=== PATIENT | male | born 1940 | race Caucasian/White ===

== ENCOUNTER → 2017-01-28 | Outpatient (CLI) | payer MEDICARE ==
[~2017-01-28] MED LIST: AMLO10TA2 PO; AMLO10TA4 PO; ATOR20TA PO; Allopurinol; BENA20TA16 PO; COLC0.6T34 PO; FERR-26 PO; META800T21 PO; METO5TAB4 PO
[2017-01-28 09:10] VITALS: BP 185/74
== END | disposition home or self-care (01) ==
LOC: LAB 09:51
PROVIDERS: ATTEND Nurse Practitioner Family
DX: E78.5 Hyperlipidemia, unspecified (principal)
CPT/HCPCS: 36415; 80061

== ENCOUNTER → 2018-02-03 | Outpatient (CLI) | payer MEDICARE ==
[2018-02-03 09:07] LABS: ADD MAN DIFF? NO
[2018-02-03 09:12] LABS: BASO # 0.1 x10^3/uL (0.0-0.2); BASO % 1 % (0-3); EOS # 0.3 x10^3/uL (0.0-0.7); EOS % 4 % (0-3); HEMATOCRIT 34.5 % (39.0-53.0); HEMOGLOBIN 11.9 g/dL (13.0-17.5); LYMPH # 1.3 x10^3/uL (1.0-4.8); LYMPH % 19 % (24-48); MEAN CORPUSCULAR HEMOGLOBIN 30 pg (25-35); MEAN CORPUSCULAR HGB CONC 35 g/dL (31-37); MEAN CORPUSCULAR VOLUME 87 fL (79-100); MONO # 0.6 x10^3/uL (0.0-1.1); MONO % 9 % (0-9); NEUT # 4.6 x10^3uL (1.8-7.7); NEUT % 67 % (31-73); PLATELET COUNT 176 x10^3/uL (140-400); RED BLOOD COUNT 3.94 x10^6/uL (4.30-5.70); WHITE BLOOD COUNT 6.9 x10^3/uL (4.0-11.0)
[2018-02-03 09:30] LABS: % SAT IRON 22 % (15-34); IRON,SERUM 79 ug/dL (65-175)
[2018-02-03 09:42] LABS: FERRITIN 48 ng/mL (26-388)
[2018-02-04 12:19] LABS: CALCIUM PTH 9.8 mg/dL (8.6-10.2); PHOSPHORUS PTH 3.7 mg/dL (2.5-4.5); PTH INTACT 240 pg/mL (15-65); eGFR AFRICAN-AMER 19 (>59); eGFR NON AFRICAN-AMER 17 (>59)
== END | disposition home or self-care (01) ==
LOC: LAB 08:49
DX: I12.9 Hypertensive chronic kidney disease with stage 1 through stage 4 chronic kidney disease, or unspecified chronic kidney disease (principal); N18.4 Chronic kidney disease, stage 4 (severe); D63.1 Anemia in chronic kidney disease; N25.81 Secondary hyperparathyroidism of renal origin; Z68.24 Body mass index [BMI] 24.0-24.9, adult
CPT/HCPCS: 36415; 82728; 83540; 83550; 83970; 85025

== ENCOUNTER → 2018-06-22 | Outpatient (CLI) | payer MEDICARE ==
[2018-06-09 10:03] VITALS: BP 179/75
[~2018-06-22] MED LIST changes: -FERR-26 PO; +FERR325T14 PO; +META-21 PO; -META800T21 PO; +OMEG1CAP29 PO; +VIT1TABL32 PO
[2018-06-22 11:02] LABS: BASO # 0.1 x10^3/uL (0.0-0.2); BASO % 1 % (0-3); EOS # 0.2 x10^3/uL (0.0-0.7); EOS % 4 % (0-3); HEMATOCRIT 31.1 % (39.0-53.0); HEMOGLOBIN 10.7 g/dL (13.0-17.5); LYMPH % 17 % (24-48); MEAN CORPUSCULAR HEMOGLOBIN 31 pg (25-35); MEAN CORPUSCULAR HGB CONC 35 g/dL (31-37); MEAN CORPUSCULAR VOLUME 89 fL (79-100); MONO # 0.5 x10^3/uL (0.0-1.1); MONO % 8 % (0-9); NEUT # 4.2 x10^3uL (1.8-7.7); NEUT % 70 % (31-73); PLATELET COUNT 167 x10^3/uL (140-400); RED BLOOD COUNT 3.49 x10^6/uL (4.30-5.70); RED CELL DISTRIBUTION WIDTH 15.2 % (11.5-14.5)
[2018-06-22 11:22] LABS: ALBUMIN 3.6 g/dL (3.4-5.0); CALCIUM 9.1 mg/dL (8.5-10.1); CREATININE 3.6 mg/dL (0.7-1.3); GFR 16.6; PHOSPHORUS 3.5 mg/dL (2.6-4.7); POTASSIUM 4.1 mmol/L (3.5-5.1)
[2018-06-23 08:25] LABS: CALCIUM PTH 9.8 mg/dL (8.6-10.2); CREATININE PTH 3.37 mg/dL (0.76-1.27); PHOSPHORUS PTH 3.4 mg/dL (2.5-4.5); PTH INTACT 332 pg/mL (15-65)
== END | disposition home or self-care (01) ==
LOC: LAB 10:25
PROVIDERS: ATTEND Internal Medicine Nephrology
DX: I12.9 Hypertensive chronic kidney disease with stage 1 through stage 4 chronic kidney disease, or unspecified chronic kidney disease (principal); N18.4 Chronic kidney disease, stage 4 (severe); N25.81 Secondary hyperparathyroidism of renal origin; D63.1 Anemia in chronic kidney disease; E78.5 Hyperlipidemia, unspecified
CPT/HCPCS: 36415; 80069; 82728; 83540; 83550; 83970; 85025

== ENCOUNTER → 2018-11-09 | Outpatient (CLI) | payer MEDICARE ==
[2018-09-29 10:06] VITALS: BP 199/83
[~2018-11-09] MED LIST changes: -AMLO10TA2 PO; +AMLO10TA6 PO
[2018-11-09 11:37] LABS: BASO # 0.1 x10^3/uL (0.0-0.2); BASO % 1 % (0-3); EOS # 0.3 x10^3/uL (0.0-0.7); EOS % 4 % (0-3); HEMATOCRIT 33.4 % (39.0-53.0); HEMOGLOBIN 11.6 g/dL (13.0-17.5); LYMPH # 1.2 x10^3/uL (1.0-4.8); LYMPH % 16 % (24-48); MEAN CORPUSCULAR HEMOGLOBIN 30 pg (25-35); MEAN CORPUSCULAR HGB CONC 35 g/dL (31-37); MEAN CORPUSCULAR VOLUME 87 fL (79-100); MONO # 0.5 x10^3/uL (0.0-1.1); MONO % 7 % (0-9); NEUT # 5.4 x10^3uL (1.8-7.7); NEUT % 71 % (31-73); PLATELET COUNT 221 x10^3/uL (140-400); RED BLOOD COUNT 3.86 x10^6/uL (4.30-5.70); RED CELL DISTRIBUTION WIDTH 14.1 % (11.5-14.5); WHITE BLOOD COUNT 7.5 x10^3/uL (4.0-11.0)
[2018-11-09 12:03] LABS: ALBUMIN 3.6 g/dL (3.4-5.0); CALCIUM 10.2 mg/dL (8.5-10.1); CREATININE 3.8 mg/dL (0.7-1.3); GFR 15.5; PHOSPHORUS 3.8 mg/dL (2.6-4.7); POTASSIUM 4.5 mmol/L (3.5-5.1)
[2018-11-09 17:11] LABS: CALCIUM PTH 9.9 mg/dL (8.6-10.2); CREATININE PTH 3.45 mg/dL (0.76-1.27); PHOSPHORUS PTH 3.9 mg/dL (2.5-4.5); PTH INTACT 215 pg/mL (15-65)
== END | disposition home or self-care (01) ==
LOC: LAB 11:12
PROVIDERS: ATTEND Internal Medicine Nephrology
DX: I12.9 Hypertensive chronic kidney disease with stage 1 through stage 4 chronic kidney disease, or unspecified chronic kidney disease (principal); N18.4 Chronic kidney disease, stage 4 (severe); N25.81 Secondary hyperparathyroidism of renal origin; D63.1 Anemia in chronic kidney disease; E87.2 Acidosis
CPT/HCPCS: 36415; 80069; 82728; 83540; 83550; 83970; 85025

== ENCOUNTER → 2019-01-11 | Outpatient (CLI) | payer MEDICARE ==
[2018-12-30 09:58] VITALS: BP 166/79
[~2019-01-11] MED LIST changes: -AMLO10TA6 PO; +AMLO10TA8 PO; +METO50TA6 PO
--- NOTE | 2019-01-11 09:04 | RAD ---
EXAM: Matias scale and color Doppler renal artery sonogram. HISTORY: Hypertension. TECHNIQUE: Matias scale and color Doppler sonographic imaging of the kidneys and renal arteries with spectral waveform analysis was performed. COMPARISON: None. FINDINGS: The right kidney measures 10.5 cm tdco-zj-otby. The left kidney measures 9.7 cm stvf-ry-jsyp. No solid or cystic renal lesion is seen. There is no hydronephrosis. The urinary bladder is unremarkable. The peak systolic velocity within the right renal artery is 141 cm/s. The peak systolic velocity within the left renal artery is 127 cm/s. There are normal renal artery to aorta velocity ratios. IMPRESSION: 1. No Doppler evidence of greater than 60% stenosis of the renal arteries. 2. Unremarkable grayscale sonographic evaluation of the kidneys. Electronically signed by: Minnie Styles MD (01/11/2019 9:01 AM) [facility]
== END | disposition home or self-care (01) ==
LOC: US 14:38
PROVIDERS: ATTEND Family Medicine
DX: I10 Essential (primary) hypertension (principal)
CPT/HCPCS: 76770

== ENCOUNTER → 2019-04-09 | Outpatient (CLI) | payer MEDICARE ==
[2019-03-23 09:09] VITALS: BP 162/73
[2019-04-09 14:41] LABS: BASO # 0.1 x10^3/uL (0.0-0.2); BASO % 1 % (0-3); EOS # 0.3 x10^3/uL (0.0-0.7); EOS % 5 % (0-3); HEMATOCRIT 30.1 % (39.0-53.0); HEMOGLOBIN 10.6 g/dL (13.0-17.5); LYMPH # 1.1 x10^3/uL (1.0-4.8); LYMPH % 17 % (24-48); MEAN CORPUSCULAR HEMOGLOBIN 31 pg (25-35); MEAN CORPUSCULAR HGB CONC 35 g/dL (31-37); MEAN CORPUSCULAR VOLUME 88 fL (79-100); MONO # 0.6 x10^3/uL (0.0-1.1); MONO % 9 % (0-9); NEUT # 4.3 x10^3uL (1.8-7.7); NEUT % 68 % (31-73); PLATELET COUNT 145 x10^3/uL (140-400); RED BLOOD COUNT 3.43 x10^6/uL (4.30-5.70); RED CELL DISTRIBUTION WIDTH 14.3 % (11.5-14.5); WHITE BLOOD COUNT 6.4 x10^3/uL (4.0-11.0)
[2019-04-09 15:19] LABS: ALBUMIN 3.7 g/dL (3.4-5.0); CALCIUM 9.6 mg/dL (8.5-10.1); CREATININE 4.5 mg/dL (0.7-1.3); GFR 12.8
[2019-04-10 17:08] LABS: CALCIUM PTH 9.6 mg/dL (8.6-10.2); CREATININE PTH 4.21 mg/dL (0.76-1.27); PHOSPHORUS PTH 4.7 mg/dL (2.5-4.5); PTH INTACT 525 pg/mL (15-65)
== END | disposition home or self-care (01) ==
LOC: LAB 13:54
PROVIDERS: ATTEND Nurse Practitioner Family
DX: I12.9 Hypertensive chronic kidney disease with stage 1 through stage 4 chronic kidney disease, or unspecified chronic kidney disease (principal); N18.4 Chronic kidney disease, stage 4 (severe); D63.1 Anemia in chronic kidney disease; D50.9 Iron deficiency anemia, unspecified; R80.9 Proteinuria, unspecified
CPT/HCPCS: 36415; 80069; 82728; 83540; 83550; 83735; 83970; 85025

== ENCOUNTER → 2019-04-15 | Outpatient (CLI) | payer MEDICARE ==
[2019-03-23 09:09] VITALS: BP 162/73
--- NOTE | 2019-04-15 09:46 | CARD ---
MR#: [id number] Date of Study: 04/15/2019 Ordering Physician: ROCAEL HONG, Referring Physician: ROCAEL HONG, Tech: Kay Carballo [facility] APPROVED REPORT EXAM: Two-dimensional and M-mode echocardiogram with Doppler and color Doppler. Other Information Quality : AverageHR: 55bpm Rhythm : Bradycardia INDICATION Hypertension/HCVD 2D DIMENSIONS RVDd2.9 (2.9-3.5cm)Left Atrium(2D)2.7 (1.6-4.0cm) IVSd1.4 (0.7-1.1cm)Aortic Root(2D)3.0 (2.0-3.7cm) LVDd4.8 (3.9-5.9cm)LVOT Diameter2.0 (1.8-2.4cm) PWd1.1 (0.7-1.1cm)LVDs2.9 (2.5-4.0cm) FS (%) 38.8 %SV74.7 ml LVEF(%)65.0 (>50%) M-Mode DIMENSIONS Left Atrium(MM)2.97 (2.5-4.0cm)Aortic Root3.49 (2.2-3.7cm) Aortic Valve AoV Peak Berry.158.7cm/sAoV VTI37.1cm AO Peak GR.10.1mmHgLVOT Peak Berry.104.0cm/s AO Mean GR.5mmHgAVA (VMAX)1.99cm2 ANATOLIY (VTI)2.00cm2 Mitral Valve MV E Uwxjajng65.2cm/sMV DECEL [id number] MV A Bopewcce764.9cm/sE/A Ratio0.7 MV A Sgkokrhp640ac Pulmonary Valve PV Peak Dmlbtrkm71.7cm/s LEFT VENTRICLE The left ventricle is normal size. There is mild concentric left ventricular hypertrophy. The left ve ntricular systolic function is normal and the ejection fraction is within normal range. The Ejection Fraction is 60-65%. There is normal LV segmental wall motion. Transmitral Doppler flow pattern is Gra de I-abnormal relaxation pattern. RIGHT VENTRICLE The right ventricle is normal size. There is normal right ventricular wall thickness. The right ventr icular systolic function is normal. ATRIA The left atrium size is normal. The right atrium size is normal. The interatrial septum is intact wit h no evidence for an atrial septal defect or patent foramen ovale as noted on 2-D or Doppler imaging. AORTIC VALVE The aortic valve is thickened but opens well. The aortic valve is trileaflet. Doppler and Color Flow revealed trace aortic regurgitation. There is no significant aortic valvular stenosis. There is no ao rtic valvular vegetation. MITRAL VALVE The mitral valve is normal in structure and function. There is no evidence of mitral valve prolapse. There is no mitral valve stenosis. Doppler and Color-flow revealed trace mitral regurgitation. TRICUSPID VALVE The tricuspid valve is normal in structure and function. Doppler and Color Flow revealed no tricuspid valve regurgitation noted. There is no tricuspid valve prolapse or vegetation. There is no tricuspid valve stenosis. PULMONIC VALVE Doppler and Color Flow revealed mild pulmonic valvular regurgitation. There is no pulmonic valvular s tenosis. GREAT VESSELS The aortic root is normal in size. The ascending aorta is normal in size. The IVC is normal in size a nd collapses >50% with inspiration. PERICARDIAL EFFUSION There is no evidence of significant pericardial effusion. Critical Notification Critical Value: No <Conclusion> The left ventricular systolic function is normal and the ejection fraction is within normal range. Th e Ejection Fraction is 60-65%. There is normal LV segmental wall motion. Signed by : Rocael Hong, Electronically Approved : 04/15/2019 09:46:01
== END | disposition home or self-care (01) ==
LOC: ECHO 07:28
PROVIDERS: ATTEND Internal Medicine Cardiovascular Disease
DX: I37.1 Nonrheumatic pulmonary valve insufficiency (principal); I11.9 Hypertensive heart disease without heart failure; R00.8 Other abnormalities of heart beat
CPT/HCPCS: 93306

== ENCOUNTER → 2019-05-10 | Outpatient (CLI) | payer MEDICARE ==
[2019-04-15 08:25] VITALS: BP 179/73
[2019-05-10 15:05] LABS: ALBUMIN 3.7 g/dL (3.4-5.0); CALCIUM 9.6 mg/dL (8.5-10.1); CREATININE 4.5 mg/dL (0.7-1.3); GFR 12.8; PHOSPHORUS 4.4 mg/dL (2.6-4.7); POTASSIUM 4.2 mmol/L (3.5-5.1)
== END | disposition home or self-care (01) ==
LOC: LAB 12:47
PROVIDERS: ATTEND Nurse Practitioner Adult Health
DX: I12.0 Hypertensive chronic kidney disease with stage 5 chronic kidney disease or end stage renal disease (principal); N18.5 Chronic kidney disease, stage 5; D63.1 Anemia in chronic kidney disease; D50.9 Iron deficiency anemia, unspecified; R80.9 Proteinuria, unspecified; Z68.22 Body mass index [BMI] 22.0-22.9, adult
CPT/HCPCS: 36415; 80069

== ENCOUNTER → 2019-11-11 | Outpatient (CLI) | payer MEDICARE ==
[2019-11-02 09:59] VITALS: BP 178/79
[2019-11-11 10:04] LABS: BASO # 0.1 x10^3/uL (0.0-0.2); BASO % 1 % (0-3); EOS # 0.2 x10^3/uL (0.0-0.7); EOS % 3 % (0-3); HEMATOCRIT 37.4 % (39.0-53.0); HEMOGLOBIN 12.8 g/dL (13.0-17.5); LYMPH # 1.2 x10^3/uL (1.0-4.8); LYMPH % 16 % (24-48); MEAN CORPUSCULAR HEMOGLOBIN 31 pg (25-35); MEAN CORPUSCULAR HGB CONC 34 g/dL (31-37); MEAN CORPUSCULAR VOLUME 89 fL (79-100); MONO # 0.6 x10^3/uL (0.0-1.1); MONO % 8 % (0-9); NEUT # 5.4 x10^3/uL (1.8-7.7); NEUT % 72 % (31-73); PLATELET COUNT 168 x10^3/uL (140-400); RED BLOOD COUNT 4.19 x10^6/uL (4.30-5.70); RED CELL DISTRIBUTION WIDTH 13.9 % (11.5-14.5); WHITE BLOOD COUNT 7.5 x10^3/uL (4.0-11.0)
[2019-11-11 10:49] LABS: ALBUMIN 4.1 g/dL (3.4-5.0); CALCIUM 10.5 mg/dL (8.5-10.1); CREATININE 4.3 mg/dL (0.7-1.3); GFR 13.4; PHOSPHORUS 5.4 mg/dL (2.6-4.7); POTASSIUM 4.7 mmol/L (3.5-5.1)
[2019-11-12 00:07] LABS: CALCIUM PTH 10.9 mg/dL (8.6-10.2); PHOSPHORUS PTH 5.3 mg/dL (2.5-4.5); PTH INTACT 362 pg/mL (15-65)
== END | disposition home or self-care (01) ==
LOC: LAB 09:25
PROVIDERS: ATTEND Internal Medicine Nephrology
DX: I12.0 Hypertensive chronic kidney disease with stage 5 chronic kidney disease or end stage renal disease (principal); N18.5 Chronic kidney disease, stage 5; R80.9 Proteinuria, unspecified; D63.1 Anemia in chronic kidney disease; D50.9 Iron deficiency anemia, unspecified
CPT/HCPCS: 36415; 80069; 82728; 83540; 83550; 83970; 85025

== ENCOUNTER → 2020-04-06 | Outpatient (CLI) | payer MEDICARE ==
[2020-03-21 10:03] VITALS: BP 133/61
[2020-04-06 09:05] LABS: BASO # 0.1 x10^3/uL (0.0-0.2); BASO % 1 % (0-3); EOS # 0.2 x10^3/uL (0.0-0.7); EOS % 5 % (0-3); HEMATOCRIT 29.7 % (39.0-53.0); HEMOGLOBIN 10.1 g/dL (13.0-17.5); LYMPH # 0.7 x10^3/uL (1.0-4.8); LYMPH % 13 % (24-48); MEAN CORPUSCULAR HEMOGLOBIN 30 pg (25-35); MEAN CORPUSCULAR HGB CONC 34 g/dL (31-37); MEAN CORPUSCULAR VOLUME 88 fL (79-100); MONO # 0.5 x10^3/uL (0.0-1.1); MONO % 9 % (0-9); NEUT % 73 % (31-73); PLATELET COUNT 149 x10^3/uL (140-400); RED BLOOD COUNT 3.37 x10^6/uL (4.30-5.70); RED CELL DISTRIBUTION WIDTH 15.3 % (11.5-14.5); WHITE BLOOD COUNT 5.5 x10^3/uL (4.0-11.0)
[2020-04-06 09:41] LABS: ALBUMIN 3.5 g/dL (3.4-5.0); CALCIUM 9.9 mg/dL (8.5-10.1); CREATININE 4.4 mg/dL (0.7-1.3); GFR 13.1; PHOSPHORUS 5.5 mg/dL (2.6-4.7); POTASSIUM 4.9 mmol/L (3.5-5.1)
[2020-04-07 01:08] LABS: CALCIUM PTH 10.7 mg/dL (8.6-10.2); CREATININE PTH 4.24 mg/dL (0.76-1.27); PHOSPHORUS PTH 5.6 mg/dL (2.8-4.1); PTH INTACT 544 pg/mL (15-65)
== END | disposition home or self-care (01) ==
LOC: LAB 08:40
PROVIDERS: ATTEND Nurse Practitioner Adult Health
DX: I12.0 Hypertensive chronic kidney disease with stage 5 chronic kidney disease or end stage renal disease (principal); N18.5 Chronic kidney disease, stage 5; R80.9 Proteinuria, unspecified; D63.1 Anemia in chronic kidney disease; D50.9 Iron deficiency anemia, unspecified; N25.81 Secondary hyperparathyroidism of renal origin
CPT/HCPCS: 36415; 80069; 82728; 83540; 83550; 83970; 85025

== ENCOUNTER → 2020-05-16 | Outpatient (CLI) | payer MEDICARE ==
[~2020-05-16] VITALS: Ht 162.6 cm; Wt 60.8 kg
[~2020-05-16] MED LIST changes: +EPOETIN ALFA 20,000 UNIT/ML VIAL. SQ ONE
[2020-05-16 10:11] VITALS: BP 117/61
[2020-05-16 10:11] LABS: HEMATOCRIT 29.9 % (39.0-53.0); HEMOGLOBIN 10.4 g/dL (13.0-17.5)
== END | disposition home or self-care (01) ==
LOC: OPS 09:45
PROVIDERS: ATTEND Internal Medicine Nephrology
DX: I12.9 Hypertensive chronic kidney disease with stage 1 through stage 4 chronic kidney disease, or unspecified chronic kidney disease (principal); N18.4 Chronic kidney disease, stage 4 (severe); D63.1 Anemia in chronic kidney disease; M19.90 Unspecified osteoarthritis, unspecified site
CPT/HCPCS: 36415; 85014; 85018; 96372; J0885

== ENCOUNTER → 2020-06-13 | Outpatient (CLI) | payer MEDICARE ==
[~2020-06-13] MED LIST changes: -EPOETIN ALFA 20,000 UNIT/ML VIAL. SQ ONE
[2020-06-13 10:17] VITALS: BP 124/56
[2020-06-13 10:37] LABS: HEMATOCRIT 33.1 % (39.0-53.0); HEMOGLOBIN 11.4 g/dL (13.0-17.5)
== END ==
LOC: OPS 09:54
PROVIDERS: ATTEND Internal Medicine Nephrology
DX: D63.1 Anemia in chronic kidney disease (principal)
CPT/HCPCS: 36415; 82728; 83540; 83550; 85014; 85018

== ENCOUNTER → 2020-07-11 | Outpatient (CLI) | payer MEDICARE ==
[~2020-07-11] VITALS: Ht 160 cm; Wt 59.0 kg
[2020-07-11 10:11] VITALS: BP 150/75
[2020-07-11 10:29] LABS: HEMATOCRIT 32.6 % (39.0-53.0); HEMOGLOBIN 11.2 g/dL (13.0-17.5)
== END | disposition home or self-care (01) ==
LOC: OPS 09:50
PROVIDERS: ATTEND Internal Medicine Nephrology
DX: N18.9 Chronic kidney disease, unspecified (principal); D63.1 Anemia in chronic kidney disease
CPT/HCPCS: 36415; 85014; 85018

== ENCOUNTER → 2020-07-11 | Outpatient (CLI) | payer MEDICARE ==
[2020-07-11 10:11] VITALS: BP 150/75
[2020-07-11 12:45] LABS: BASO # 0.1 x10^3/uL (0.0-0.2); BASO % 1 % (0-3); EOS # 0.2 x10^3/uL (0.0-0.7); EOS % 4 % (0-3); HEMATOCRIT 32.7 % (39.0-53.0); HEMOGLOBIN 11.1 g/dL (13.0-17.5); LYMPH % 19 % (24-48); MEAN CORPUSCULAR HEMOGLOBIN 30 pg (25-35); MEAN CORPUSCULAR HGB CONC 34 g/dL (31-37); MEAN CORPUSCULAR VOLUME 87 fL (79-100); MONO # 0.5 x10^3/uL (0.0-1.1); MONO % 10 % (0-9); NEUT # 3.7 x10^3/uL (1.8-7.7); NEUT % 67 % (31-73); PLATELET COUNT 144 x10^3/uL (140-400); RED BLOOD COUNT 3.76 x10^6/uL (4.30-5.70); RED CELL DISTRIBUTION WIDTH 15.7 % (11.5-14.5); WHITE BLOOD COUNT 5.6 x10^3/uL (4.0-11.0)
[2020-07-11 13:30] LABS: ALBUMIN 3.5 g/dL (3.4-5.0); CALCIUM 10.6 mg/dL (8.5-10.1); CREATININE 4.4 mg/dL (0.7-1.3); GFR 13.1; PHOSPHORUS 5.8 mg/dL (2.6-4.7); POTASSIUM 4.7 mmol/L (3.5-5.1)
[2020-07-12 01:08] LABS: CALCIUM PTH 10.7 mg/dL (8.6-10.2); CREATININE PTH 4.33 mg/dL (0.76-1.27); PHOSPHORUS PTH 5.7 mg/dL (2.8-4.1); PTH INTACT 516 pg/mL (15-65)
== END | disposition home or self-care (01) ==
LOC: LAB 12:15
PROVIDERS: ATTEND Internal Medicine Nephrology
DX: N25.81 Secondary hyperparathyroidism of renal origin (principal); I12.0 Hypertensive chronic kidney disease with stage 5 chronic kidney disease or end stage renal disease; N18.5 Chronic kidney disease, stage 5; R80.9 Proteinuria, unspecified; D63.1 Anemia in chronic kidney disease; D50.9 Iron deficiency anemia, unspecified
CPT/HCPCS: 36415; 80069; 83540; 83550; 83970; 85025

== ENCOUNTER → 2021-01-11 | Outpatient (CLI) | payer MEDICARE ==
[2021-01-02 10:30] VITALS: BP 114/74
[~2021-01-11] MED LIST changes: +AMLO-187 PO; -AMLO10TA8 PO
[2021-01-11 11:00] LABS: BASO # 0.1 x10^3/uL (0.0-0.2); BASO % 1 % (0-3); EOS # 0.2 x10^3/uL (0.0-0.7); EOS % 4 % (0-3); HEMATOCRIT 31.7 % (39.0-53.0); LYMPH % 18 % (24-48); MEAN CORPUSCULAR HEMOGLOBIN 31 pg (25-35); MEAN CORPUSCULAR HGB CONC 35 g/dL (31-37); MEAN CORPUSCULAR VOLUME 89 fL (79-100); MONO # 0.6 x10^3/uL (0.0-1.1); MONO % 11 % (0-9); NEUT # 3.5 x10^3/uL (1.8-7.7); NEUT % 66 % (31-73); PLATELET COUNT 152 x10^3/uL (140-400); RED BLOOD COUNT 3.57 x10^6/uL (4.30-5.70); RED CELL DISTRIBUTION WIDTH 14.8 % (11.5-14.5); WHITE BLOOD COUNT 5.3 x10^3/uL (4.0-11.0)
[2021-01-11 11:26] LABS: ALBUMIN 3.3 g/dL (3.4-5.0); CALCIUM 9.8 mg/dL (8.5-10.1); CREATININE 5.3 mg/dL (0.7-1.3); GFR 10.5; PHOSPHORUS 5.6 mg/dL (2.6-4.7); POTASSIUM 4.9 mmol/L (3.5-5.1)
== END ==
LOC: LAB 09:55
PROVIDERS: ATTEND Internal Medicine Nephrology
DX: I12.0 Hypertensive chronic kidney disease with stage 5 chronic kidney disease or end stage renal disease (principal); N18.5 Chronic kidney disease, stage 5; R80.9 Proteinuria, unspecified; D63.1 Anemia in chronic kidney disease; D50.9 Iron deficiency anemia, unspecified; N25.81 Secondary hyperparathyroidism of renal origin
CPT/HCPCS: 80069; 82728; 83540; 83550; 83970; 85025

== ENCOUNTER → 2021-04-03 | Outpatient (CLI) | payer MEDICARE ==
[2021-02-27 10:20] VITALS: BP 131/70
[2021-04-03 10:34] LABS: BASO # 0.1 x10^3/uL (0.0-0.2); BASO % 1 % (0-3); EOS # 0.3 x10^3/uL (0.0-0.7); EOS % 5 % (0-3); HEMATOCRIT 31.8 % (39.0-53.0); LYMPH # 0.9 x10^3/uL (1.0-4.8); LYMPH % 16 % (24-48); MEAN CORPUSCULAR HEMOGLOBIN 31 pg (25-35); MEAN CORPUSCULAR HGB CONC 35 g/dL (31-37); MEAN CORPUSCULAR VOLUME 89 fL (79-100); MONO # 0.6 x10^3/uL (0.0-1.1); MONO % 11 % (0-9); NEUT # 3.8 x10^3/uL (1.8-7.7); NEUT % 66 % (31-73); PLATELET COUNT 177 x10^3/uL (140-400); RED BLOOD COUNT 3.58 x10^6/uL (4.30-5.70); RED CELL DISTRIBUTION WIDTH 13.4 % (11.5-14.5); WHITE BLOOD COUNT 5.7 x10^3/uL (4.0-11.0)
[2021-04-03 11:22] LABS: ALBUMIN 3.6 g/dL (3.4-5.0); CALCIUM 9.7 mg/dL (8.5-10.1); CREATININE 5.9 mg/dL (0.7-1.3); GFR 9.3; PHOSPHORUS 6.4 mg/dL (2.6-4.7); POTASSIUM 4.6 mmol/L (3.5-5.1)
[2021-04-04 01:13] LABS: CALCIUM PTH 10.3 mg/dL (8.6-10.2); CREATININE PTH 5.45 mg/dL (0.76-1.27); PTH INTACT 882 pg/mL (15-65)
== END ==
LOC: LAB 10:12
PROVIDERS: ATTEND Nurse Practitioner Adult Health
DX: I12.0 Hypertensive chronic kidney disease with stage 5 chronic kidney disease or end stage renal disease (principal); N18.5 Chronic kidney disease, stage 5; R80.9 Proteinuria, unspecified; D63.1 Anemia in chronic kidney disease; D50.9 Iron deficiency anemia, unspecified; N25.81 Secondary hyperparathyroidism of renal origin
CPT/HCPCS: 36415; 80069; 82728; 83540; 83550; 83970; 85025

== ENCOUNTER → 2021-07-10 | Outpatient (CLI) | payer MEDICARE ==
[2021-06-19 10:25] VITALS: BP 107/68
[2021-07-10 11:45] LABS: BASO # 0.1 x10^3/uL (0.0-0.2); BASO % 1 % (0-3); EOS # 0.1 x10^3/uL (0.0-0.7); EOS % 2 % (0-3); HEMATOCRIT 31.4 % (39.0-53.0); HEMOGLOBIN 10.7 g/dL (13.0-17.5); LYMPH # 0.7 x10^3/uL (1.0-4.8); LYMPH % 12 % (24-48); MEAN CORPUSCULAR HEMOGLOBIN 31 pg (25-35); MEAN CORPUSCULAR HGB CONC 34 g/dL (31-37); MEAN CORPUSCULAR VOLUME 90 fL (79-100); MONO # 0.5 x10^3/uL (0.0-1.1); MONO % 10 % (0-9); NEUT # 4.3 x10^3/uL (1.8-7.7); NEUT % 75 % (31-73); PLATELET COUNT 172 x10^3/uL (140-400); RED BLOOD COUNT 3.49 x10^6/uL (4.30-5.70); WHITE BLOOD COUNT 5.7 x10^3/uL (4.0-11.0)
[2021-07-10 12:13] LABS: ALBUMIN 3.6 g/dL (3.4-5.0); CALCIUM 10.9 mg/dL (8.5-10.1); CREATININE 5.9 mg/dL (0.7-1.3); GFR 9.3; PHOSPHORUS 6.3 mg/dL (2.6-4.7); POTASSIUM 4.8 mmol/L (3.5-5.1)
[2021-07-11 00:23] LABS: CALCIUM PTH 10.7 mg/dL (8.6-10.2); CREATININE PTH 5.49 mg/dL (0.76-1.27); PHOSPHORUS PTH 6.1 mg/dL (2.8-4.1); PTH INTACT 625 pg/mL (15-65)
== END ==
LOC: LAB 11:15
PROVIDERS: ATTEND Nurse Practitioner Adult Health
DX: I12.0 Hypertensive chronic kidney disease with stage 5 chronic kidney disease or end stage renal disease (principal); N18.5 Chronic kidney disease, stage 5; D63.1 Anemia in chronic kidney disease; D50.9 Iron deficiency anemia, unspecified; N25.81 Secondary hyperparathyroidism of renal origin; R80.9 Proteinuria, unspecified; Z68.24 Body mass index [BMI] 24.0-24.9, adult
CPT/HCPCS: 36415; 80069; 82728; 83540; 83550; 83970; 85025

== ENCOUNTER → 2021-08-14 | Outpatient (CLI) | payer MEDICARE ==
[~2021-08-14] MED LIST changes: +EPOETIN ALFA-EPBX for NON-DIALYSIS 20,000 UNIT/ML VIAL. SQ ONE
[2021-08-14 10:03] VITALS: BP 111/64
[2021-08-14 10:39] LABS: HEMATOCRIT 28.2 % (39.0-53.0); HEMOGLOBIN 9.8 g/dL (13.0-17.5)
== END | disposition home or self-care (01) ==
LOC: OPS 09:42
PROVIDERS: ATTEND Internal Medicine Nephrology
DX: I12.0 Hypertensive chronic kidney disease with stage 5 chronic kidney disease or end stage renal disease (principal); N18.5 Chronic kidney disease, stage 5; D63.1 Anemia in chronic kidney disease
CPT/HCPCS: 36415; 85014; 85018; 96372; Q5106

== ENCOUNTER → 2021-10-08 | Outpatient (CLI) | payer MEDICARE ==
[2021-10-08 13:30] VITALS: BP 129/54
[2021-10-08 14:02] LABS: BASO # 0.1 x10^3/uL (0.0-0.2); BASO % 2 % (0-3); EOS # 0.3 x10^3/uL (0.0-0.7); EOS % 6 % (0-3); HEMATOCRIT 22.1 % (39.0-53.0); HEMOGLOBIN 7.7 g/dL (13.0-17.5); LYMPH # 0.6 x10^3/uL (1.0-4.8); LYMPH % 14 % (24-48); MEAN CORPUSCULAR HEMOGLOBIN 31 pg (25-35); MEAN CORPUSCULAR HGB CONC 35 g/dL (31-37); MEAN CORPUSCULAR VOLUME 89 fL (79-100); MONO # 0.5 x10^3/uL (0.0-1.1); MONO % 10 % (0-9); NEUT # 3.2 x10^3/uL (1.8-7.7); NEUT % 69 % (31-73); PLATELET COUNT 137 x10^3/uL (140-400); RED BLOOD COUNT 2.49 x10^6/uL (4.30-5.70); RED CELL DISTRIBUTION WIDTH 14.9 % (11.5-14.5); WHITE BLOOD COUNT 4.7 x10^3/uL (4.0-11.0)
[2021-10-08 14:55] LABS: ALBUMIN 2.9 g/dL (3.4-5.0); CALCIUM 9.8 mg/dL (8.5-10.1); CREATININE 6.7 mg/dL (0.7-1.3); PHOSPHORUS 8.6 mg/dL (2.6-4.7); POTASSIUM 5.1 mmol/L (3.5-5.1)
[2021-10-09 13:12] LABS: CALCIUM PTH 10.2 mg/dL (8.6-10.2); CREATININE PTH 6.62 mg/dL (0.76-1.27); PHOSPHORUS PTH 8.3 mg/dL (2.8-4.1); PTH INTACT 907 pg/mL (15-65)
== END | disposition home or self-care (01) ==
LOC: OPS 13:16
PROVIDERS: ATTEND Internal Medicine Nephrology
DX: I12.0 Hypertensive chronic kidney disease with stage 5 chronic kidney disease or end stage renal disease (principal); N18.5 Chronic kidney disease, stage 5; D63.1 Anemia in chronic kidney disease
CPT/HCPCS: 36415; 80069; 82728; 83540; 83550; 83970; 85025; 96372; Q5106

== ENCOUNTER 2021-10-15 11:57 | Emergency (ER) | payer MEDICARE ==
[~2021-10-15] VITALS: Ht 160 cm; Wt 62.0 kg
[~2021-10-15 11:57] MED LIST changes: -EPOETIN ALFA-EPBX for NON-DIALYSIS 20,000 UNIT/ML VIAL. SQ ONE
--- NOTE | 2021-10-15 12:17 | PHYS DOC ---
Past Medical History Past Medical History: Kidney Infection, Other Additional Past Medical Histor: HX SEPSIS, COLOSTOMY, KIDNEY FAILURE Past Surgical History: Colectomy, Other Smoking Status: Never Smoker Alcohol Use: None Drug Use: None General Adult EDM: Chief Complaint: MULTIPLE COMPLAINTS HPI: HPI: Patient is a 81 year old male who was sent in by his primary care office for irregular heartbeat as well as further evaluation of right lower extremity swelling and left lower extremity pain. He reports that he has had right lower extremity swelling for several months, no reported pain in this limb. No changes today. He reports about 6 weeks of exertional pain in his left lower extremity. No color changes. No numbness or tingling or motor weakness reported. He has no left lower extremity swelling. He denies chest pain, dyspnea, palpitations, dizziness, syncope, diaphoresis, Kory pain, nausea or vomiting. According to the patient and his , the physician who saw him at the office told him that he had atrial fibrillation, he was sent here for that. The patient has no prior history of known atrial fibrillation. He was also sent here for evaluation of a possible lower extremity DVT. The patient has end- stage renal disease, is supposed to see nephrology tomorrow, he has repeatedly refused to have dialysis, he continues to adamantly refuse dialysis services. Review of Systems: Review of Systems: Constitutional: Denies fever or chills. [] HENT: Denies nasal congestion or sore throat. [] Respiratory: Denies cough or shortness of breath. [] Cardiovascular: Denies chest pain. He has chronic right lower extremity swelling. No diffuse edema. GI: Denies abdominal pain, nausea, vomiting, diarrhea or constipation. : Denies urinary symptoms. Musculoskeletal: Left lower leg pain with exertion/walking. Right lower extremity swelling and chronic skin changes. Integument: Denies acute rash. Chronic and unchanged R lower leg skin changes from previous injury. Neurologic: Denies headache, focal weakness or sensory changes. [] Psychiatric: Denies depression or anxiety. [] Heart Score: C/O Chest Pain: No Risk Factors: Risk Factors: DM, Current or recent (<one month) smoker, HTN, HLP, family history of CAD, obesity. Risk Scores: Score 0 - 3: 2.5% MACE over next 6 weeks - Discharge Home Score 4 - 6: 20.3% MACE over next 6 weeks - Admit for Clinical Observation Score 7 - 10: 72.7% MACE over next 6 weeks - Early Invasive Strategies Allergies: Allergies: Allergies Coded Allergies Type Severity Reaction Last Updated Verified No Known Drug Allergies 10/08/21 No Physical Exam: PE: Constitutional: Well developed, well nourished, no acute distress, non-toxic appearance. He is chronically ill appearing. HENT: Normocephalic, atraumatic Eyes: Sclera are clear, conjunctiva are clear Neck: Normal range of motion, no tenderness, supple, no stridor. Trachea midline. Cardiovascular: Regular rate, SR with occasional PVCs, +2 DP and PT and radial pulses bilaterally Lungs & Thorax: Bilateral breath sounds clear to auscultation, no R/R/W, no distress Abdomen: Abdomen is soft, non-distended, non-tender to palpation Skin: Warm, dry, no erythema. Chronic venous stasis changes on the right anterior lower leg. No warmth, no tenderness. Back: No tenderness, no CVA tenderness. [] Extremities: No tenderness, no cyanosis, no clubbing, ROM intact. No limb deformity, +1 RLE pitting edema. No calf tenderness. CR brisk. No bony tenderness. Full painless active and passive ROM of the bilateral hips, knees, lower legs, ankles and feet. Neurologic: Alert and oriented X 3, normal motor function, normal sensory function, no focal deficits noted. [] Psychologic: Affect normal, judgement normal, mood normal. [] EKG: EKG: EKG is interpreted at 1216 Rhythm is sinus Frequent PVCs [place] is normal LVH No STEMI Radiology/Procedures: Radiology/Procedures: IMAGING REPORT Signed PATIENT: EMILIANO SANDOVAL ACCOUNT: [id number] : 1940 LOCATION: ER AGE: 81 SEX: M EXAM STATUS: PRE ER ORD. PHYSICIAN: SAMEERA MCELROY DO REASON: lower extremity swelling PROCEDURE: VENOUS LOWER EXT BILATERAL Bilateral lower extremity venous duplex study 10/15/2021 12:40 PM Clinical History: Bilateral lower extremity edema: Technique: Using a combination of real time ultrasound imaging and color-flow and pulse Doppler imaging techniques along with graded compression and augmentation, duplex evaluation of the deep venous system of the both lower extremities was performed. Multiple images were obtained. Findings: There is no sonographic evidence of deep venous thrombosis involving the visualized deep venous structures of either lower extremity. Impression: No evidence of deep venous thrombosis involving either lower extremity Electronically signed by: Sp Wild MD (10/15/2021 1:33 PM) [id number] DICTATED and SIGNED BY: SP WILD MD DATE: 10/15/21 [id number] 0 Course & Med Decision Making: Course & Med Decision Making Pertinent Labs and Imaging studies reviewed. (See chart for details) I have discussed the findings, differential diagnosis and plan of care with the patient. He is not manifesting any evidence of atrial fibrillation. Does have an irregular rhythm, with frequent PVCs. He manifests no physical complaints at this time. He denies chest pain or dyspnea palpitations, dizziness, syncope. With the exertional lower extremity pain, I did discuss the possibility of claudication, he will need outpatient vascular surgery consultation. This may be coordinated with his primary care physician. He has an appointment with nephrology tomorrow, I recommend that he keep this appointment as scheduled. No lower extremity DVT is noted. No obvious evidence of vascular or neurovascular compromise noted on physical exam here today. No evidence of obvious infection on exam today. I recommend further discussion with his PCP. I have discussed this with his as well. No current indication for further invasive exams, imaging or admission at this time. Strict return precautions are given. Dragon Disclaimer: Dragon Disclaimer: This electronic medical record was generated, in whole or in part, using a voice recognition dictation system. Departure Departure Impression: Primary Impression: Swelling of right lower extremity Additional Impressions: Pain of left lower extremity Chronic kidney disease Qualified Codes: N18.9 - Chronic kidney disease, unspecified PVC's (premature ventricular contractions) Disposition: HOME / SELF CARE / HOMELESS Condition: STABLE Referrals: JOSEPHINE LOERA MD (PCP) Patient Instructions: Intermittent Claudication, Kidney Failure, Peripheral Edema, Premature Ventricular Contraction Additional Instructions: Please keep your appointment with your sales/marketing tomorrow, as scheduled. Please contact your primary care physician for further evaluation and treatment of your chronic health conditions as well. You do not have any evidence of a deep vein thrombosis or clot in your legs today. You have normal pulses on exam today. Given your symptoms of pain in your left leg with walking, you may have what is called claudication, and you will need to see a vascular surgeon for this, please coordinate this with your primary care physician. You may require outpatient studies to evaluate for possible partial blockage of arteries in your legs. Return to the ER for chest pain, shortness of breath, dizziness, vomiting, abdominal pain, weakness, if you are acutely injured or for any other concerns. SAMEERA MCELROY DO Oct 15, 2021 12:17
[2021-10-15 13:13] LABS: BASO % 1 % (0-3); CALCIUM 9.5 mg/dL (8.5-10.1); CREATININE 6.9 mg/dL (0.7-1.3); EOS # 0.2 x10^3/uL (0.0-0.7); EOS % 4 % (0-3); GFR 7.7; HEMATOCRIT 24.9 % (39.0-53.0); HEMOGLOBIN 8.2 g/dL (13.0-17.5); LYMPH # 0.6 x10^3/uL (1.0-4.8); LYMPH % 9 % (24-48); MEAN CORPUSCULAR HEMOGLOBIN 30 pg (25-35); MEAN CORPUSCULAR HGB CONC 33 g/dL (31-37); MEAN CORPUSCULAR VOLUME 90 fL (79-100); MONO # 0.6 x10^3/uL (0.0-1.1); MONO % 9 % (0-9); NEUT % 77 % (31-73); PLATELET COUNT 183 x10^3/uL (140-400); POTASSIUM 4.3 mmol/L (3.5-5.1); RED BLOOD COUNT 2.78 x10^6/uL (4.30-5.70); RED CELL DISTRIBUTION WIDTH 15.6 % (11.5-14.5); WHITE BLOOD COUNT 6.5 x10^3/uL (4.0-11.0)
--- NOTE | 2021-10-15 13:35 | RAD ---
Bilateral lower extremity venous duplex study 10/15/2021 12:40 PM Clinical History: Bilateral lower extremity edema: Technique: Using a combination of real time ultrasound imaging and color-flow and pulse Doppler imagi ng techniques along with graded compression and augmentation, duplex evaluation of the deep venous sy stem of the both lower extremities was performed. Multiple images were obtained. Findings: There is no sonographic evidence of deep venous thrombosis involving the visualized deep ve nous structures of either lower extremity. Impression: No evidence of deep venous thrombosis involving either lower extremity Electronically signed by: Sp Silva MD (10/15/2021 1:33 PM) [id number]
[2021-10-15 14:00] VITALS: BP 108/86
--- NOTE | 2021-10-16 23:53 | EKG ---
[facility] [address] [place] [address] Test Date: 2021-10-15 Test Time: 12:15:09 Pat Name: EMILIANO SANDOVAL Department: Room: Gender: M [employer]: : 1940 Requested By: SAMEERA MCELROY Order Number: [id number] Reading MD: Eric Watts Measurements Intervals [place] Rate: 84 P: 90 WV: 324 QRS: 72 QRSD: 86 T: -24 QT: 368 QTc: 438 Interpretive Statements SINUS RHYTHM VENTRICULAR PREMATURE COMPLEX(ES) ATRIAL PREMATURE COMPLEX(ES) PROLONGED [place] INTERVAL LVH WITH REPOLARIZATION ABNORMALITY ABNORMAL ECG RI6.01 Electronically Signed On 10-18-2021 13:01:37 [employer] by Eric Watts
== END 2021-10-15 14:09 | disposition home or self-care (01) ==
LOC: ER 11:57
DX: R22.31 Localized swelling, mass and lump, right upper limb (principal); M79.605 Pain in left leg; N18.9 Chronic kidney disease, unspecified; I49.3 Ventricular premature depolarization; Z93.3 Colostomy status
CPT/HCPCS: 36415; 80048; 85025; 93005; 93970; 99285-25